=== PATIENT | female | born 1965 | race Caucasian/White ===

== ENCOUNTER → 2016-11-19 | Outpatient (CLI) | payer BC | LOC: MC.RAD 08:51 | DX: Z12.31 Encounter for screening mammogram for malignant neoplasm of breast (principal) ==

== ENCOUNTER → 2017-02-14 | Outpatient (CLI) | payer BC | LOC: COL.RAD 02-07 13:30 | DX: E04.2 Nontoxic multinodular goiter (principal) ==

== ENCOUNTER 2018-01-16 16:15 | Outpatient (RCR) | payer BC | END 2018-01-17 09:55 | disposition home or self-care (01) | LOC: MKS.ESL.PT 16:15 | DX: G43.009 Migraine without aura, not intractable, without status migrainosus (principal) ==

== ENCOUNTER → 2018-01-31 | Outpatient (CLI) | payer BC | LOC: MC.RAD 12-23 14:00 | DX: Z12.31 Encounter for screening mammogram for malignant neoplasm of breast (principal) ==

== ENCOUNTER → 2019-03-09 | Outpatient (CLI) | payer BC | LOC: MC.RAD 07:45 | DX: Z12.31 Encounter for screening mammogram for malignant neoplasm of breast (principal) ==

== ENCOUNTER → 2020-03-28 | Outpatient (CLI) | payer BC | LOC: MC.RAD 08:11 | DX: Z12.31 Encounter for screening mammogram for malignant neoplasm of breast (principal) ==

== ENCOUNTER → 2021-06-11 | Outpatient (CLI) | payer BC | LOC: MC.RAD 07:44 | DX: Z12.31 Encounter for screening mammogram for malignant neoplasm of breast (principal) ==

== ENCOUNTER 2021-09-25 08:04 | Day surgery (SDC) | payer BC ==
[~2021-09-25] VITALS: Ht 170.2 cm; Wt 82.7 kg
[2021-09-25] MEDS ORDERED: ZOCOR 20MG20 MG PO (08:20)
[2021-09-25] MEDS ORDERED: SINGULAIR 110 MG/TAB PO (08:21)
[2021-09-25] MEDS ORDERED: ZOLOFT 100MG100 MG PO (08:21)
[2021-09-25] MEDS ORDERED: ZYRTEC 10MG10 MG PO (08:22)
[2021-09-25] MEDS ORDERED: PROAIR HFA0.09 MG/AC IH (08:22)
[2021-09-25] MEDS ORDERED: ASPIRIN 81M81 MG/TA2 PO (08:22)
[2021-09-25] MEDS ORDERED: QVAR REDIHALE10.6 GM IH (08:22)
[2021-09-25] MEDS ORDERED: RESTASIS 60VL OP (08:23)
[2021-09-25] MEDS ORDERED: IMITREX50 MG PO (08:23)
[2021-09-25] MEDS ORDERED: ESTROGEL0.06% TOP (08:24)
[2021-09-25 08:37] VITALS: BP 134/96; PULSE 94; TEMP 98.2
[2021-09-25 09:49] VITALS: BP 122/87; PULSE 82; TEMP 97.4
--- NOTE | 2021-09-25 09:49 | NUR ---
Pt arrived from endo suite on cart. The patient was able to ambulate from cart to chair with a mild unsteady gait. Vitals obtained. Verbal report obtained. The patient requested ice water and a warm muffin to eat. Call khan is within reach. Visitor is present.
[2021-09-25 10:04] VITALS: BP 119/83; PULSE 68
--- NOTE | 2021-09-25 10:04 | NUR ---
The patient has finished her muffin and denies nausea. Vitals obtained. The patient expressed desire to be discharged. Call khan remains within reach.
--- NOTE | 2021-09-25 10:15 | NUR ---
DC instructions and educational material was reviewed with the patient, who verbalized understanding and signed the realted paperwork. IV was discontinued. Catheter tip intact. Pressure dressing applied. The patient denied having any questions or concerns, and denied needing assistance changing into her personal clothes. Call khan remains within reach. Vitals obtained.
[2021-09-25 10:18] VITALS: BP 122/86; PULSE 68
--- NOTE | 2021-09-25 10:22 | NUR ---
Patient was escorted out via wheelchair to the patient entrence, and transferred into the care of her , who is present to drive. The patient has her DC packet in hand.
[2021-09-25 15:13] VITALS: BP 122/87; PULSE 79
== END 2021-09-25 10:25 | disposition home or self-care (01) ==
LOC: SDCO 08:04
DX: Z12.11 Encounter for screening for malignant neoplasm of colon (principal)
CPT/HCPCS: J2704; J7030

== ENCOUNTER → 2024-03-06 | Outpatient (CLI) | payer OTHER ==
[~2024-03-06] MED LIST: ASPIRIN 81M81 MG/TA2 PO; ESTROGEL0.06% TOP; IMITREX50 MG PO; PROAIR HFA0.09 MG/AC IH; QVAR REDIHALE10.6 GM IH; RESTASIS 60VL OP; SINGULAIR 110 MG/TAB PO; ZOCOR 20MG20 MG PO; ZOLOFT 100MG100 MG PO; ZYRTEC 10MG10 MG PO
== END ==
LOC: MC.RAD 09:00
DX: Z12.31 Encounter for screening mammogram for malignant neoplasm of breast (principal)